=== PATIENT | female | born 1990 | race Two or more races ===

== ENCOUNTER 2019-05-07 05:38 | Inpatient (IN) ==
[~2019-05-07] VITALS: Ht 167.6 cm; Wt 94.5 kg
[2019-05-07] MEDS: AMPICILLIN 1 GM in SODIUM CHLORIDE 0.9% 50 ML IVPB SCH ×3 (03:50→15:50)
[2019-05-07 05:45] VITALS: BP 134/99
[2019-05-07 06:25] LABS: MICROSCOPIC NOT IND
[2019-05-07] MEDS ORDERED: OXYTOCIN 30U/ 0.9% NaCL 500ML 500 ML IV ONE (06:51)
[2019-05-07] MEDS ORDERED: AMPICILLIN 2 GM in SODIUM CHLORIDE 0.9% 100 ML IVPB STA (06:51)
[2019-05-07] MEDS ORDERED: D5%-LACTATED RINGERS 1,000 ML IV SCH (06:51)
[2019-05-07] MEDS ORDERED: TERBUTALINE 1 MG/ML, 1ML IVPush PRN (07:00)
[2019-05-07] MEDS ORDERED: FENTANYL PF 100 MCG/2ML IVPush PRN (07:00)
[2019-05-07] MEDS ORDERED: ONDANSETRON 2MG/ML, 2ML IVPush PRN ×2 (07:00→20:00)
[2019-05-07] MEDS ORDERED: FENTANYL PF 100 MCG/2ML IV PRN (07:00)
[2019-05-07 07:48] LABS: BASOPHILS # (AUTO) 0.03 x10^3/uL (0-0.1); BASOPHILS % (AUTO) 0 % (0-1); EOSINOPHILS # (AUTO) 0.04 x10^3/uL (0-0.4); EOSINOPHILS % (AUTO) 0 % (1-7); LYMPHOCYTES # (AUTO) 1.63 x10^3/uL (1-3.4); LYMPHOCYTES % (AUTO) 16 % (22-44); MD NO; MEAN CORPUSCULAR HEMOGLOBIN 30.8 pg (27.0-34.8); MEAN CORPUSCULAR HGB CONC 33.1 g/dL (32.4-35.8); MEAN CORPUSCULAR VOLUME 93.1 fL (80-100); MEAN PLATELET VOLUME 8.4 fL (7.4-10.4); MONOCYTES % (AUTO) 6 % (2-9); NEUTROPHILS # (AUTO) 8.14 x10^3/uL (1.8-6.8); NEUTROPHILS % (AUTO) 78 % (42-75); PLATELET COUNT 238 x10^3/uL (130-400); RED BLOOD COUNT 4.66 x10^6/uL (3.82-5.3); RED CELL DISTRIBUTION WIDTH 13.7 % (9.6-15.2)
[2019-05-07] MEDS: LACTATED RINGERS 1,000 ML IV SCH ×2 (07:57→20:19)
[2019-05-07 08:00] VITALS: BP 138/92
[2019-05-07 08:08] LABS: ALANINE AMINOTRANSFERASE 19 U/L (12-78); ALBUMIN 2.7 g/dL (3.4-5.0); ANION GAP 4 mmol/L (5-15); CHLORIDE 109 mmol/L (98-107); CREATININE 0.55 mg/dL (0.55-1.02)
[2019-05-07 08:11] LABS: ALKALINE PHOSPHATASE 147 U/L (45-117); BILIRUBIN,TOTAL 0.5 mg/dL (0.2-1.0); TOTAL PROTEIN 7.6 g/dL (6.4-8.2)
[2019-05-07] MEDS ORDERED: MISOPROSTOL 25 MCG TABLET ONE ×3 (08:30→17:47)
[2019-05-07] MEDS: MISOPROSTOL 25 MCG TABLET VG PRN ×2 (08:33→13:16)
[2019-05-07 08:58] LABS: CREATININE,URINE RANDOM 59.1 mg/dL
[2019-05-07] MEDS ORDERED: MISOPROSTOL 200 MCG TABLET ONE (09:17)
[2019-05-07] MEDS ORDERED: NEWBORN KIT ONE (09:17)
[2019-05-07] MEDS ORDERED: LIDOCAINE 1%, 20ML ONE (09:17)
[2019-05-07] MEDS ORDERED: OXYTOCIN 30U/ 0.9% NaCL 500ML 500 ML ONE (18:11)
[2019-05-07] MEDS ORDERED: OXYTOCIN 30U/ 0.9% NaCL 500ML 500 ML IV PRN (18:14)
[2019-05-07] MEDS ORDERED: FENTANYL/BUPIV./NS/PF 250 ML EPIDCONT SCH ×2 (18:39→19:53)
[2019-05-07] MEDS ORDERED: FENTANYL PF 500 MCG, BUPIVACAINE/PF 0.5%, 30ML 62.5 ML in SODIUM CHLORIDE 0.9% 177.5 ML EPIDCONT SCH ×2 (19:00→20:30)
[2019-05-07] MEDS ORDERED: FENTANYL PF 100 MCG/2ML ONE (19:01)
[2019-05-07] MEDS ORDERED: LACTATED RINGERS 1,000 ML IV SCH (19:53)
[2019-05-07] MEDS ORDERED: BUPIVACAINE 0.25% ONE ×2 (19:55→20:00)
[2019-05-07] MEDS ORDERED: DIPHENHYDRAMINE 50 MG/ML, 1ML IVPush PRN (20:00)
[2019-05-07] MEDS ORDERED: EPHEDRINE 50 MG/ML, 1ML IVPush PRN (20:00)
[2019-05-07] MEDS ORDERED: LIDOCAINE 1%-EPI 1:100K, 30ML ONE (20:00)
[2019-05-07] MEDS ORDERED: NALOXONE 0.4 MG/ML, 1ML IVPush PRN (20:00)
[2019-05-07] MEDS ORDERED: LACTATED RINGERS 1,000 ML IVBOLUS PRN (20:00)
[2019-05-07] MEDS ORDERED: LIDOCAINE/MPF 2%-EPI 1:200K, 20 ML ONE (22:00)
[2019-05-08] MEDS ORDERED: FENTANYL PF 100 MCG/2ML ONE ×2 (01:19→02:15)
[2019-05-08] MEDS ORDERED: OXYTOCIN 30U/ 0.9% NaCL 500ML 500 ML ONE (03:14)
[2019-05-08] MEDS: OXYTOCIN 30U/ 0.9% NaCL 500ML 500 ML IV SCH ×3 (03:16→23:01)
[2019-05-08] MEDS ORDERED: ACETAMINOPHEN 325 MG TABLET PO PRN ×2 (03:30)
[2019-05-08] MEDS ORDERED: OXYcodone/APAP 5/325MG TABLET PO PRN ×2 (03:30)
[2019-05-08] MEDS ORDERED: METOCLOPRAMIDE 5 MG/ML, 2ML IV PRN (03:30)
[2019-05-08] MEDS ORDERED: MISOPROSTOL 200 MCG TABLET PR PRN (03:30)
[2019-05-08] MEDS ORDERED: ONDANSETRON 2MG/ML, 2ML IV PRN (03:30)
[2019-05-08] MEDS ORDERED: SIMETHICONE 80 MG CHEW TAB PO PRN (03:30)
[2019-05-08] MEDS ORDERED: METHYLERGONOVINE 0.2 MG/ML IM PRN (03:30)
[2019-05-08] MEDS ORDERED: IBUPROFEN 600 MG TABLET ONE (03:48)
[2019-05-08] MEDS: IBUPROFEN 600 MG TABLET PO PRN ×3 (03:51→20:55)
[2019-05-08 05:00] VITALS: BP 133/82
[2019-05-08 07:31] VITALS: BP 120/82
[2019-05-08] MEDS ORDERED: PRENATAL VIT/IRON/FA 1 EACH TABLET PO SCH (09:00)
[2019-05-08] MEDS: DOCUSATE 100 MG CAPSULE PO PRN ×2 (10:11→20:55)
[2019-05-08 11:10] LABS: BASOPHILS # (AUTO) 0.04 x10^3/uL (0-0.1); BASOPHILS % (AUTO) 0 % (0-1); EOSINOPHILS # (AUTO) 0.21 x10^3/uL (0-0.4); EOSINOPHILS % (AUTO) 1 % (1-7); LYMPHOCYTES # (AUTO) 2.24 x10^3/uL (1-3.4); LYMPHOCYTES % (AUTO) 13 % (22-44); MD NO; MEAN CORPUSCULAR HEMOGLOBIN 31.2 pg (27.0-34.8); MEAN CORPUSCULAR VOLUME 94.4 fL (80-100); MEAN PLATELET VOLUME 8.6 fL (7.4-10.4); MONOCYTES # (AUTO) 0.91 x10^3/uL (0.2-0.8); MONOCYTES % (AUTO) 5 % (2-9); NEUTROPHILS % (AUTO) 80 % (42-75); PLATELET COUNT 237 x10^3/uL (130-400); RED BLOOD COUNT 4.11 x10^6/uL (3.82-5.3); RED CELL DISTRIBUTION WIDTH 13.8 % (9.6-15.2)
[2019-05-08 12:15] VITALS: BP 128/88
[2019-05-08 16:15] VITALS: BP 121/82
[2019-05-08 19:00] VITALS: BP 119/70
[2019-05-08 23:40] VITALS: BP 120/59
[2019-05-09] MEDS: IBUPROFEN 600 MG TABLET PO PRN (06:47)
== END 2019-05-09 12:30 | disposition home or self-care (01) | DRG 807 ==
LOC: LDOP 05:38 → LDIP 06:58 → 2NW 05-08 04:36
PROVIDERS: ADMIT Obstetrics & Gynecology; ATTEND Obstetrics & Gynecology
PROC: 10E0XZZ Delivery of Products of Conception, External Approach (ICD-10-PCS; principal; 2019-05-08)
PROC: 0HQ9XZZ Repair Perineum Skin, External Approach (ICD-10-PCS; 2019-05-08)
PROC: 3E0R3BZ Introduction of Anesthetic Agent into Spinal Canal, Percutaneous Approach (ICD-10-PCS; 2019-05-08)
PROC: 00HU33Z Insertion of Infusion Device into Spinal Canal, Percutaneous Approach (ICD-10-PCS; 2019-05-08)
DX: O14.04 Mild to moderate pre-eclampsia, complicating childbirth (principal); Z37.0 Single live birth; O42.90 Premature rupture of membranes, unspecified as to length of time between rupture and onset of labor, unspecified weeks of gestation; O70.1 Second degree perineal laceration during delivery; Z3A.35 35 weeks gestation of pregnancy
CPT/HCPCS: 36415; S0020; 59025; 80053; 81003; 82570; 82803; 84112; 84156; 84550; 85025; 86850; 86900; 89060; 99211; G0378; J0290; J3010; J3490; G0463; J2590; J7050; J7120; Q0114